=== PATIENT | female | born 1975 | race African-American/Black ===

== ENCOUNTER 2018-07-17 16:21 | Emergency (ER) | payer OTHER ==
[~2018-07-17] VITALS: Ht 162.6 cm; Wt 81.2 kg
[2018-07-17] MEDS ORDERED: MORPHINE SULFATE 2 MG/ML VIAL. IV/SQ PRN (16:45)
[2018-07-17] MEDS ORDERED: NITROGLYCERIN SUBLINGUAL 0.4 MG BOTTLE OF 25. SL PRN (16:45)
--- NOTE | 2018-07-17 16:58 | RAD ---
AP chest. HISTORY: Chest pain AP view was taken of the chest. Lungs are clear. Heart is normal in size without heart failure. There is no pleural effusion. IMPRESSION: 1. No acute chest disease. Electronically signed by: Gómez Hinson MD (07/17/2018 4:55 PM) [facility]
--- NOTE | 2018-07-17 17:07 | PHYS DOC ---
Past Medical History Past Medical History: Arthritis, Bronchitis, Hypertension, Migraines Past Surgical History: No Surgical History Alcohol Use: None Drug Use: None Adult General Chief Complaint Chief Complaint: CHEST PAIN HPI HPI Patient is a 42 year old female with history of hypertension, bronchitis, who presents to the ED today complaining of 3 out of 10 sharp substernal chest pain that radiates to her neck that has been going on intermittently for one week. 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 Patient also states her symptoms sometimes are worse on deep breaths. Patient states she already saw her PCP a couple days ago who did an EKG, she states the EKG was normal. Patient denies any shortness of breath. She states she's been taking Tylenol as well as Excedrin with some relief Review of Systems Review of Systems Constitutional: Denies fever or chills [] Eyes: Denies change in visual acuity, redness, or eye pain [] HENT: Denies nasal congestion or sore throat [] Respiratory: Denies cough or shortness of breath [] Cardiovascular: Reports chest pain GI: Denies abdominal pain, nausea, vomiting, bloody stools or diarrhea [] : Denies dysuria or hematuria [] Musculoskeletal: Denies back pain or joint pain [] Integument: Denies rash or skin lesions [] Neurologic: Denies headache, focal weakness or sensory changes [] All other systems were reviewed and found to be within normal limits, except as documented in this note. Current Medications Current Medications Current Medications Medications (Trade) Dose Ordered Sig/Alberta Start Time Stop Time Status Last Admin Dose Admin Aspirin (Khoa Aspirin) 325 mg 1X ONCE 07/17/18 17:45 07/17/18 17:46 DC 07/17/18 17:43 325 MG Morphine Sulfate (Morphine Sulfate) 2 mg PRN Q15MIN PRN 07/17/18 16:45 07/18/18 16:44 Nitroglycerin (Nitrostat) 0.4 mg PRN Q5MIN PRN 07/17/18 16:45 07/18/18 16:44 Allergies Allergies Allergies Coded Allergies Type Severity Reaction Last Updated Verified No Known Drug Allergies 07/17/18 No Physical Exam Physical Exam Constitutional: Well developed, well nourished, no acute distress, non-toxic appearance. [] HENT: Normocephalic, atraumatic, bilateral external ears normal, oropharynx m oist, no oral exudates, nose normal. [] Eyes: PERRLA, EOMI, conjunctiva normal, no discharge. [] Neck: Normal range of motion, no tenderness, supple, no stridor. [] Cardiovascular:Heart rate regular rhythm, no murmur [] Lungs & Thorax: Bilateral breath sounds clear to auscultation [] Abdomen: Bowel sounds normal, soft, no tenderness, no masses, no pulsatile masses. [] Skin: Warm, dry, no erythema, no rash. [] Back: No tenderness, no CVA tenderness. [] Extremities: No tenderness, no cyanosis, no clubbing, ROM intact, no edema. [] Neurologic: Alert and oriented X 3, normal motor function, normal sensory function, no focal deficits noted. [] Psychologic: Affect normal, judgement normal, mood normal. [] Current Patient Data Vital Signs Vital Signs Date Time Temp Pulse Resp B/P (MAP) Pulse Ox O2 Delivery O2 Flow Rate FiO2 07/17/18 16:35 98.4 60 18 137/87 (104) 97 Room Air 98.4 Lab Values Laboratory Tests Test 07/17/18 17:04 White Blood Count 4.6 x10^3/uL (4.0-11.0) Red Blood Count 3.88 x10^6/uL (3.50-5.40) Hemoglobin 12.2 g/dL (12.0-15.5) Hematocrit 35.9 % (36.0-47.0) L Mean Corpuscular Volume 92 fL (79-100) Mean Corpuscular Hemoglobin 31 pg (25-35) Mean Corpuscular Hemoglobin Concent 34 g/dL (31-37) Red Cell Distribution Width 12.6 % (11.5-14.5) Platelet Count 256 x10^3/uL (140-400) Neutrophils (%) (Auto) 40 % (31-73) Lymphocytes (%) (Auto) 45 % (24-48) Monocytes (%) (Auto) 10 % (0-9) H Eosinophils (%) (Auto) 4 % (0-3) H Basophils (%) (Auto) 1 % (0-3) Neutrophils # (Auto) 1.8 x10^3uL (1.8-7.7) Lymphocytes # (Auto) 2.1 x10^3/uL (1.0-4.8) Monocytes # (Auto) 0.5 x10^3/uL (0.0-1.1) Eosinophils # (Auto) 0.2 x10^3/uL (0.0-0.7) Basophils # (Auto) 0.1 x10^3/uL (0.0-0.2) Prothrombin Time 13.1 SEC (11.7-14.0) Prothrombin Time INR 1.0 (0.8-1.1) PTT 31 SEC (24-38) Sodium Level 139 mmol/L (136-145) Potassium Level 3.4 mmol/L (3.5-5.1) L Chloride Level 102 mmol/L (98-107) Carbon Dioxide Level 26 mmol/L (21-32) Anion Gap 11 (6-14) Blood Urea Nitrogen 12 mg/dL (7-20) Creatinine 0.8 mg/dL (0.6-1.0) Estimated GFR (Cockcroft-Gault) 78.3 BUN/Creatinine Ratio 15 (6-20) Glucose Level 92 mg/dL (70-99) Calcium Level 9.0 mg/dL (8.5-10.1) Magnesium Level 2.2 mg/dL (1.8-2.4) Total Bilirubin 0.2 mg/dL (0.2-1.0) Aspartate Amino Transferase (AST) 17 U/L (15-37) Alanine Aminotransferase (ALT) 23 U/L (14-59) Alkaline Phosphatase 68 U/L (46-116) Creatine Kinase 124 U/L (26-192) Creatine Kinase MB (Mass) 1.0 ng/mL (0.0-3.6) Creatine Kinase MB Relative Index 0.8 % (0-4) Troponin I Quantitative < 0.017 ng/mL (0.000-0.055) NK-Xbv-J-Type Natriuretic Peptide 19 pg/mL (0-124) Total Protein 7.4 g/dL (6.4-8.2) Albumin 3.9 g/dL (3.4-5.0) Albumin/Globulin Ratio 1.1 (1.0-1.7) Thyroid Stimulating Hormone (TSH) 0.984 uIU/mL (0.358-3.74) Laboratory Tests 07/17/18 17:04 Laboratory Tests 07/17/18 17:04 EKG EKG Intepreted by Dr. Winters-sinus rhythm HR 67 no STEMI[] Radiology/Procedures Radiology/Procedures []PROCEDURE: PORTABLE CHEST 1V AP chest. HISTORY: Chest pain AP view was taken of the chest. Lungs are clear. Heart is normal in size without heart failure. There is no pleural effusion. IMPRESSION: 1. No acute chest disease. Electronically signed by: Gómez Hinson MD (07/17/2018 4:55 PM) [facility] DICTATED and SIGNED BY: GÓMEZ HINSON MD DATE: 07/17/18 1827 Course & Med Decision Making Course & Med Decision Making Pertinent Labs and Imaging studies reviewed. (See chart for details) This is a 42-year-old female patient presenting to the ED today complaining of substernal chest pain radiating to her neck, symptoms have been going on for one week. Patient has been seen by the PCP for the same complaint and had a negative EKG her what she states. On arrival to the ED, EKG was negative, CBC CMP troponin are negative for any a cute findings. Chest x-ray is negative. Heartscore 1 Patient vitals temperature 98.4, heart rate 60 respiration 18 on room air blood pressure 137/87 and O2 sats 97% on room air Spoke to patient, offered admission, she states she cannot be admitted because of multiple results including Mother's Day coming up as well as she does not want to "wreck up a bill" when she can be seen as an outpatient with PCP and cartographic engineer. She requested a note for work which was provided. She promised to follow-up with her PCP as well as cartographic engineer next week. Dragon Disclaimer Dragon Disclaimer This electronic medical record was generated, in whole or in part, using a voice recognition dictation system. Departure Departure Impression: Primary Impression: Chest pain Disposition: 01 HOME, SELF-CARE Condition: STABLE Referrals: JENNIFFER GARCIA MD follow up next week Patient Instructions: Chest Pain (Nonspecific), [id number] Additional Instructions: You were evaluated in the emergency room for chest pain. We provided you a cartographic engineer, ensure you follow-up with them next week, also follow-up with the primary care doctor next week. Please come back to the ED at any point symptoms worsen. Problem Qualifiers Primary Impression: Chest pain Chest pain type: unspecified Qualified Codes: R07.9 - Chest pain, unspecified LISHA FINN BEARING MAKER July 17, 2018 17:07
[2018-07-17 17:13] LABS: BASO # 0.1 x10^3/uL (0.0-0.2); BASO % 1 % (0-3); EOS # 0.2 x10^3/uL (0.0-0.7); EOS % 4 % (0-3); HEMATOCRIT 35.9 % (36.0-47.0); HEMOGLOBIN 12.2 g/dL (12.0-15.5); LYMPH # 2.1 x10^3/uL (1.0-4.8); LYMPH % 45 % (24-48); MEAN CORPUSCULAR HEMOGLOBIN 31 pg (25-35); MEAN CORPUSCULAR HGB CONC 34 g/dL (31-37); MEAN CORPUSCULAR VOLUME 92 fL (79-100); MONO # 0.5 x10^3/uL (0.0-1.1); MONO % 10 % (0-9); NEUT # 1.8 x10^3uL (1.8-7.7); NEUT % 40 % (31-73); PLATELET COUNT 256 x10^3/uL (140-400); RED BLOOD COUNT 3.88 x10^6/uL (3.50-5.40); RED CELL DISTRIBUTION WIDTH 12.6 % (11.5-14.5); WHITE BLOOD COUNT 4.6 x10^3/uL (4.0-11.0)
[2018-07-17 17:24] LABS: CREATININE 0.8 mg/dL (0.6-1.0); GFR 78.3; POTASSIUM 3.4 mmol/L (3.5-5.1); PROTHROMBIN TIME PATIENT 13.1 SEC (11.7-14.0)
[2018-07-17 17:30] LABS: ALBUMIN 3.9 g/dL (3.4-5.0); ALBUMIN/GLOBULIN RATIO 1.1 (1.0-1.7); MAGNESIUM 2.2 mg/dL (1.8-2.4); TOTAL BILIRUBIN 0.2 mg/dL (0.2-1.0); TOTAL PROTEIN 7.4 g/dL (6.4-8.2)
[2018-07-17] MEDS ORDERED: ASPIRIN 325 MG TABLET PO ONE (17:45)
[2018-07-17 18:32] VITALS: BP 113/73
--- NOTE | 2018-07-19 15:46 | EKG ---
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
== END 2018-07-17 18:51 | disposition home or self-care (01) ==
LOC: ER 16:21
DX: R07.2 Precordial pain (principal); M54.2 Cervicalgia; I10 Essential (primary) hypertension; G43.909 Migraine, unspecified, not intractable, without status migrainosus
CPT/HCPCS: 36415; 71045; 80053; 82553; 83735; 83880; 84443; 84484; 85025; 85610; 85730; 93005; 99285-25

== ENCOUNTER → 2018-09-02 | Outpatient (CLI) | payer OTHER ==
--- NOTE | 2018-09-02 15:13 | CARD ---
MR#: [id number] Date of Study: 09/02/2018 Ordering Physician: TONY MORALES, Referring Physician: TONY MORALES, Tech: Mora Espinal RDCS APPROVED REPORT INDICATION Chest Pain PROCEDURE The patient underwent an Exercise Stress Test using the Luis Miguel Protocol. Blood pressure, heart rate, a nd EKG were monitored. An Echocardiogram was performed by sample prep technician in four stages in quad fashion. At peak stress four se lected images were obtained and placed side by side with resting images for comparison. STRESS ECHO FINDINGS The resting Echocardiogram showed normal left ventricular systolic contractility with an estimated Ej ection Fraction of about 60 %. The Resting Echocardiogram showed normal augmentation of myocardial wall segments using a 16 segment model. The Stress Echocardiogram showed normal augmentation of myocardial wall segments using a 16 segment m damien. Test Type: Exercise Stress Nurse/Tech: Mikaela Wilkerson R.N. Test Indications: chest pain Cardiac History and Allergies: see ehr Medications: see ehr Medical History: see ehr Resting ECG: sb Resting Heart Rate: 58 bpm Resting Blood Pressure: 137/87mmHg Pretest Chest Pain: No chest pain Nurse/Tech Notes lungs cta, heart tones regular Stress Symptoms No chest pain or symptoms. POST EXERCISE Reason for Termination: Reached target heart rate Target HR: Yes Max HR: 176 bpm 99% of Maximum Predicted HR: 177 bpm Exercise duration: 10:01 min:sec, 4 Stage Exercise capacity: 12.8METs Max Blood Pressure: 137/87mmHg Blood Pressure response to exercise: Normal blood pressure response during stress. Heart Rate response to exercise: normal Chest Pain: No. Arrhythmia: Yes. occasional unifocal PVC noted ST Change: Yes. non diagnostic INTERPRETATION Stress EKG Conclusion: Baseline EKG showed sinus rhythm. Non-diagnostic changes at peak stress. No arrhythmias. Preliminary Notification Critical Value: No <Conclusion> Treadmill exercise stress echocardiogram did not show any evidence of ischemia or infarct. Normal left ventricle systolic function with ejection fraction estimated at 60%. Patient had good activity tolerance. Low risk for cardiac events. Signed by : Collin Ramos, Electronically Approved : 09/02/2018 15:13:12
--- NOTE | 2018-09-02 17:01 | CARD ---
MR#: [id number] Date of Study: 09/02/2018 Ordering Physician: TONY MORALES, Referring Physician: TONY MORALES, Tech: Annette Vo APPROVED REPORT EXAM: Two-dimensional and M-mode echocardiogram with Doppler and color Doppler. Other Information Quality : GoodHR: 52bpm Rhythm : NSR INDICATION Dyspnea Chest Pain RISK FACTORS Hypertension 2D DIMENSIONS RVDd2.7 (2.9-3.5cm)Left Atrium(2D)3.4 (1.6-4.0cm) IVSd1.1 (0.7-1.1cm)Aortic Root(2D)3.0 (2.0-3.7cm) LVDd5.1 (3.9-5.9cm)LVOT Diameter2.2 (1.8-2.4cm) PWd1.0 (0.7-1.1cm)LVDs3.4 (2.5-4.0cm) FS (%) 34.5 %SV80.0 ml LVEF(%)63.3 (>50%) Aortic Valve AoV Peak Hugo.103.3cm/sAoV VTI24.3cm AO Peak GR.4.3mmHgLVOT Peak Hugo.101.2cm/s AO Mean GR.2mmHgAVA (VMAX)3.59cm2 Mitral Valve MV E Mjhruigp68.0cm/sMV DECEL WLEL663le MV A Inmnlxdh66.4cm/sE/A Ratio0.9 Pulmonary Valve PV Peak Rnniyndm25.5cm/s Tricuspid Valve TR P. Yyriuhkg222ux/sRAP GNWOLOCE7bsMq TR Peak Gr.88lfQyRJXW29ktCk Pulmonary Vein S1 Hiolkpgw27.9cm/sD2 Sppoqham65.1cm/s PVa afdnzuvv064oqsr LEFT VENTRICLE The left ventricle is normal size. There is borderline concentric left ventricular hypertrophy. The l eft ventricular systolic function is normal and the ejection fraction is within normal range. The Eje ction Fraction is 50-55%. There is normal LV segmental wall motion. The left ventricular diastolic fu nction and filling is normal for age. RIGHT VENTRICLE The right ventricle is normal size. There is normal right ventricular wall thickness. The right ventr icular systolic function is normal. ATRIA The left atrium size is normal. The right atrium is borderline dilated. The interatrial septum is int act with no evidence for an atrial septal defect or patent foramen ovale as noted on 2-D or Doppler i maging. AORTIC VALVE The aortic valve is normal in structure and function. Doppler and Color Flow revealed no significant aortic regurgitation. There is no significant aortic valvular stenosis. MITRAL VALVE The mitral valve is normal in structure and function. There is no evidence of mitral valve prolapse. There is no mitral valve stenosis. Doppler and Color-flow revealed trace to mild mitral regurgitation . TRICUSPID VALVE The tricuspid valve is normal in structure and function. Doppler and Color Flow revealed trace tricus pid regurgitation with an estimated PAP of 25 mmHg. There is no tricuspid valve stenosis. PULMONIC VALVE Doppler and Color Flow revealed no pulmonic valvular regurgitation. There is no pulmonic valvular mini nosis. GREAT VESSELS The aortic root is normal in size. The IVC is normal in size and collapses >50% with inspiration. PERICARDIAL EFFUSION There is no evidence of significant pericardial effusion. Critical Notification Critical Value: No <Conclusion> The left ventricular systolic function is normal and the ejection fraction is within normal range. Th e Ejection Fraction is 50-55%. There is normal LV segmental wall motion. Signed by : Gulshan Lieberman, Electronically Approved : 09/02/2018 17:00:55
== END | disposition home or self-care (01) ==
LOC: ECHO 12:54
PROVIDERS: ATTEND Internal Medicine Cardiovascular Disease
DX: I34.0 Nonrheumatic mitral (valve) insufficiency (principal); I10 Essential (primary) hypertension
CPT/HCPCS: 93017; 93306; 93350

== ENCOUNTER → 2018-12-01 | Outpatient (CLI) | payer OTHER ==
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
== END | disposition home or self-care (01) ==
LOC: KCIC MRI 08:03
PROVIDERS: ATTEND Orthopaedic Surgery Sports Medicine
DX: M48.061 Spinal stenosis, lumbar region without neurogenic claudication (principal); M47.817 Spondylosis without myelopathy or radiculopathy, lumbosacral region; M25.78 Osteophyte, vertebrae; M53.88 Other specified dorsopathies, sacral and sacrococcygeal region
CPT/HCPCS: 72148

== ENCOUNTER 2019-04-22 14:24 | Emergency (ER) | payer OTHER ==
[~2019-04-22] VITALS: Ht 162.6 cm; Wt 80.9 kg
[2019-04-22 14:54] VITALS: BP 159/101
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
[2019-04-22] MEDS ORDERED: NAPR-514 PO (17:27)
[2019-04-22] MEDS ORDERED: KETOROLAC TROMETHAMINE 10 MG TABLET PO STA (17:32)
== END 2019-04-22 17:44 | disposition home or self-care (01) ==
LOC: ER 14:24
DX: G89.11 Acute pain due to trauma (principal); M25.552 Pain in left hip; M54.5 Low back pain; M19.90 Unspecified osteoarthritis, unspecified site; I10 Essential (primary) hypertension; G43.909 Migraine, unspecified, not intractable, without status migrainosus; V89.2XXA Person injured in unspecified motor-vehicle accident, traffic, initial encounter; Y93.89 Activity, other specified; Y92.413 State road as the place of occurrence of the external cause; Y99.8 Other external cause status
CPT/HCPCS: 72131; 73502; 81025; 99284

== ENCOUNTER → 2021-03-06 | Outpatient (CLI) | payer OTHER ==
[~2021-03-06] MED LIST: NAPR-514 PO
--- NOTE | 2021-03-06 17:28 | KCIC ---
EXAM: MRI RIGHT ANKLE/HINDFOOT DATE: 03/06/2021 12:32 PM CLINICAL INDICATION: Reason: SPRAIN OF ANKLE, LIGAMENT/CARTILAGE INJURY / Spl. Instructions: / Histo ry: Fell and twisted ankle last Oct. Pain is anteriolateral. COMPARISON: None. TECHNIQUE: Multiplanar, multisequence MR imaging of the right ankle was performed without IV contrast . FINDINGS: No ankle joint effusion. No subtalar joint effusion. Tendons: Mild thickening and increased signal of the peroneus longus beyond the calcaneal tubercle, tendinosis . Peroneus brevis is intact. Posterior tibialis, flexor digitorum longus and flexor hallucis longus tendons are intact. Anterior tibialis, extensor digitorum longus and extensor hallucis longus tendons are intact. Achilles tendon intact with normal signal and morphology. Plantar fascia intact without marginal osteitis or soft tissue swelling. Physiologic fluid at the ret rocalcaneal bursa. Ligaments: Medial deltoid stabilizers are intact. There is mild thinning and trace increased signal within the ATFL. Otherwise the lateral collateral s tabilizing ligaments are intact. . Anterior and posterior tibiofibular ligaments are intact. Spring ligament intact. Ligaments of the Sinus Tarsi are intact. Spaces/Places: Sinus Tarsi within normal limits, without mass lesion or edema pattern. Tarsal tunnel within normal limits, without mass lesion. Articular Cartilage/joint line: Articular cartilage at the tibiotalar joint preserved. Negative osteochondral lesion of the talar dom e. Posterior and middle subtalar joint spaces are preserved. Marginal joint spaces appear preserved including calcaneocuboid joint. Bone/Bone Marrow: Generally normal bone marrow signal. Negative focal bone marrow replacement or bone marrow edema romina susan. Calcaneal enthesophytes are seen. IMPRESSION: 1. Mild thinning and trace increased signal of the ATFL likely from old injury and associated scarri ng. No significant associated soft tissue or ligamentous edema to suggest acute injury. 2. Thickening of the ATFL, likely from old injury and scarring. No evidence for acute tear. Electronically signed by: Frank Baca MD (03/06/2021 5:25 PM) [id number]
== END ==
LOC: KCIC MRI 12:22
PROVIDERS: ATTEND Podiatrist
DX: S93.401D Sprain of unspecified ligament of right ankle, subsequent encounter (principal); X58.XXXD Exposure to other specified factors, subsequent encounter
CPT/HCPCS: 73721